=== PATIENT | female | born 1955 | race Caucasian/White ===

== ENCOUNTER → 2022-03-22 | Outpatient (CLI) | payer OTHER, MEDICARE ==
[~2022-03-22] MED LIST: ACCOLATE20 MG PO; ADVAIR 500-501 EACH INH; CALCIUM PO; CENTRUM SILVER1 EAC1 PO; IRON PO; KLONOPIN1 MG PO; PERCOCET 10-321 EACH PO; PROTONIX40 MG PO; PROVENTIL HFA6.7 GM INH; VITAMIN B12 PO; VITAMIN D325 MCG PO; WELLBUTRIN XL300 MG PO; ZOLOFT50 MG PO
[2022-03-22 11:33] LABS: HEMOGLOBIN 12.3 gm/dl (12.3-15.3); RED BLOOD COUNT 4.41 M/UL (4.00-5.10); WHITE BLOOD COUNT 9.4 K/UL (4.5-11.0)
[2022-03-22 11:56] LABS: BUN/CREATININE RATIO 14 (0-10)
== END ==
LOC: OPSV2 10:00
PROVIDERS: Anesthesiology
DX: Z01.818 Encounter for other preprocedural examination (principal)
CPT/HCPCS: 80048; 85025; 93005

== ENCOUNTER → 2022-04-02 | Outpatient (CLI) | payer OTHER, MEDICARE | LOC: KOH-I 03-21 11:30 | DX: M19.012 Primary osteoarthritis, left shoulder (principal) | CPT/HCPCS: 73200 ==

== ENCOUNTER → 2022-04-04 | Outpatient (CLI) | payer OTHER, MEDICARE ==
[~2022-04-04] MED LIST changes: +HYDROCODON-ACE1 EAC6 PO; +MELOXICAM15 MG PO; +NEXIUM40 MG PO
[2022-04-04 16:46] LABS: BUN/CREATININE RATIO 15 (0-10)
== END ==
LOC: LAB 15:12
PROVIDERS: Orthopaedic Surgery
DX: Z01.812 Encounter for preprocedural laboratory examination (principal)
CPT/HCPCS: 36415; 80048; 86850; 86900; 86901

== ENCOUNTER → 2022-04-05 | Day surgery (SDC) | payer MEDICARE, OTHER | END | disposition home or self-care (01) | LOC: OR 06:11 | DX: M75.102 Unspecified rotator cuff tear or rupture of left shoulder, not specified as traumatic (principal); M75.52 Bursitis of left shoulder; G89.18 Other acute postprocedural pain; J45.909 Unspecified asthma, uncomplicated; K21.9 Gastro-esophageal reflux disease without esophagitis; Z88.0 Allergy status to penicillin; Z79.1 Long term (current) use of non-steroidal anti-inflammatories (NSAID); Z79.899 Other long term (current) drug therapy | CPT/HCPCS: 73020; 97161; 97166; 97530; 97535; C1713; C1776; J1100; J2370; J2405; J2704; J2710; J2795; J3010 ==